=== PATIENT | male | born 1930 | race Caucasian/White ===

== ENCOUNTER 2017-04-26 18:39 | Observation (INO) | payer MEDICARE, OTHER ==
[2017-04-26 22:51] LABS: ABS Basophils 0.1 10^3/ul (0-0.2); ABS Eosinophils 0.2 10^3/ul (0-0.6); ABS Lymphocytes 0.5 10^3/ul (1.0-4.8); ABS Monocytes 1.1 10^3/ul (0-0.8); ABS Neutrophils 4.9 10^3/ul (1.5-7.7); ABS Nucleated RBC 0 10^3/ul; Eosinophil % 2.3 % (0-6); Hematocrit 25 % (42-52); Hemoglobin 8.4 g/dl (14.0-18.0); Lymphocyte % 7.1 % (25-47); Mean Corpuscular HGB Conc 33 g/dl (31-36); Mean Corpuscular Hemoglobin 31 pg (27-31); Mean Corpuscular Volume 95 fL (80-94); Mean Platelet Volume 9 um3 (7.4-10.4); Nucleated Red Blood Cells % 0.1; Platelet Count 140 10^3/ul (150-450); Red Blood Count 2.67 10^6/ul (4.0-5.4); Red Cell Distribution Width 17 % (10.5-15); White Blood Count 6.7 10^3/ul (3.5-10.8)
[2017-04-26 22:53] LABS: INR 1.52 (0.77-1.02)
[2017-04-26 22:59] LABS: EGFR Non-African American 44.9 (>60)
[2017-04-27] MEDS ORDERED: CMCS:Melatonin (NF) 3 MG TAB PO PRN (03:24)
[2017-04-27] MEDS ORDERED: Acetaminophen TAB* 325 MG PO PRN (03:24)
[2017-04-27 05:59] LABS: EGFR Non-African American 53.1 (>60)
[2017-04-27] MEDS ORDERED: Levothyroxine TAB* 25 MCG TAB PO SCH (06:00)
[2017-04-27] MEDS ORDERED: Furosemide IV* 10 MG/ML VIAL (40 MG) IV SCH (07:00)
--- NOTE | 2017-04-27 07:40 | RAD ---
INDICATION: Shortness breath. COMPARISON: Comparison is made with a prior study from April 26, 2016. TECHNIQUE: A portable view of the chest was obtained. FINDINGS: The patient is status post sternotomy and cardiac valve replacement surgery. The heart is moderately enlarged and unchanged. The lungs are underinflated. There is mild prominence of the interstitial markings which are unchanged. No pleural effusion is seen. IMPRESSION: 1. POSTSURGICAL CHANGES AND CARDIOMEGALY. 2. NO EVIDENCE FOR ACUTE FINDING.
--- NOTE | 2017-04-27 07:43 | RAD ---
INDICATION: Lower extremity pain and swelling evaluate for DVT. COMPARISON: There are no prior studies available for comparison. TECHNIQUE: Multiple real-time, color flow and Doppler tracings of both lower extremities were obtained. FINDINGS: The common femoral, femoral, profunda femoral and popliteal veins all demonstrate normal compressibility, augmentation with compression and phasic response with respiration. The posterior tibial and peroneal veins demonstrate normal compressibility and augmentation with compression. Evaluation of the calf veins was somewhat limited due to edema. There are bilateral Helton's cyst measuring 4.4 x 1.3 x 2.4 cm on the right and 2.6 x 0.6 x 2.5 cm on the left. IMPRESSION: 1. NO EVIDENCE FOR DEEP VENOUS THROMBOSIS, SLIGHTLY LIMITED EVALUATION OF THE CALF VEINS. 2. BILATERAL HELTON CYSTS.
[2017-04-27] MEDS: Losartan TAB* 25 MG PO SCH (08:22)
[2017-04-27] MEDS: Penicillin VK TAB* 250 MG PO SCH (08:23)
[2017-04-27] MEDS: Fondaparinux* 2.5 MG/0.5 ML SYRINGE SUBCUT SCH ×2 (08:23→10:37)
[2017-04-27] MEDS: Ferrous Sulfate TAB* 325 MG PO SCH (08:23)
[2017-04-27] MEDS: Cholecalciferol TAB* 400 UNIT PO SCH (08:23)
[2017-04-27] MEDS ORDERED: Multivitamins/Minerals TAB PO SCH (09:00)
--- NOTE | 2017-04-27 12:56 | HP ---
CC: Dr. Delarosa; Dr. Chapman * HISTORY AND PHYSICAL: DATE OF ADMISSION: 04/27/17 PRIMARY CARE PROVIDER: Dr. Delarosa. TECHNICAL SERVICE REPRESENTATIVE: Dr. Chapman. CHIEF COMPLAINT: Lower extremity swelling. HISTORY OF PRESENT ILLNESS: Mr. Womack is an 86-year-old male who has a history of prostate cancer status post radical prostatectomy with resultant radiation cystitis and proctitis, atrial fibrillation, chronic iron deficiency anemia, hypertension and a history of rheumatic fever as child who presents to the emergency room with complaints of lower extremity swelling. The patient is not very clear on when he noticed swelling of his legs, but he states that he thinks it began sometime around . His daughter states that it has been maybe just 1 month. He also complains of shortness of breath that developed last fall and is persistent. His daughter lives out of town and when she got in to visit him today, she noted his legs to be markedly swollen. She contacted the purchase request editor's office and it was recommended that he present to the emergency room for evaluation. He denies any pain in the legs, but he does feel as if the bottom of his feet are numb. PAST MEDICAL HISTORY: 1. Prostate cancer. 2. OA. 3. Atrial fibrillation. 4. Radiation proctitis and cystitis. 5. Hypertension. 6. Iron deficiency anemia. 7. History of rheumatic fever. PAST SURGICAL HISTORY: 1. Bladder/urethral surgeries. 2. Achilles surgery. 3. Left knee arthroscopy. 4. Radical prostatectomy. 5. Mitral valve repair. 6. Bovine aortic valve replacement. 7. Bilateral cataract extraction. MEDICATIONS: 1. Vitamin E 400 units p.o. daily. 2. Triamterene/hydrochlorothiazide 1 tab p.o. daily. 3. Pen VK 250 mg p.o. daily. 4. Multivitamin 1 tab p.o. daily. 5. Osteo Bi-Flex 1 tab p.o. daily. 6. Melatonin 5 mg p.o. q.h.s. p.r.n. insomnia. 7. Losartan 50 mg p.o. daily. 8. Leg cramp relief 1 tab p.o. q.4 hours p.r.n. cramp. 9. Folic acid 400 mcg p.o. daily. 10. Ferrous sulfate 325 mg p.o. daily. 11. Vitamin D 400 units p.o. daily. 12. Tylenol 650 mg p.o. t.i.d. p.r.n. pain. ALLERGIES: PROCAINE and HEPARIN. FAMILY HISTORY: Mom of cancer, dad of coronary disease. SOCIAL HISTORY: The patient is a nonsmoker. He does not drink. He previously worked construction. He is . His has had a stroke recently. He has 3 children. He indicates that his and his son Gurdeep are his healthcare proxies. REVIEW OF SYSTEMS: A complete 11-system review of systems is obtained. Pertinent positives and negatives are as per HPI and in addition, the patient denies any fevers, chills or anorexia. No sputum production. He also admits to anxiety. PHYSICAL EXAMINATION GENERAL: The patient is a well-developed elderly male seen lying almost completely flat in the stretcher, awake and stabilized, no acute distress. VITAL SIGNS: Blood pressure 109/49, pulse 57, respirations 17, temp 97.7, O2 sat 94% on room air. HEENT: Pupils are equal and round. There is evidence of prior cataract extraction. There is a slight bruise underneath the right eye. Oropharynx is clear. Oral mucosa is very dry. There is no submandibular, cervical or supraclavicular adenopathy. Thyroid is not enlarged. No thyroid nodules are noted. PULMONARY: Lungs are clear to auscultation bilaterally. CARDIAC: Normal S1, S2. Heart rate is mildly irregular. There is a 3/6 systolic murmur heard best at the left upper sternal border. There is significant, 4+ pitting edema to the bilateral lower extremities extending up to the hips bilaterally. ABDOMEN: Bowel sounds present. Abdomen is soft, nontender, nondistended. MUSCULOSKELETAL: There is no cyanosis or clubbing of the digits. There is full active range of motion of all 4 extremities. SKIN: Warm on the legs, slightly erythematous. There are no ulcerations or areas of weeping skin. NEUROLOGIC: Cranial nerves II through XII are grossly intact. Sensation is intact to light touch throughout. Strength is 5/5 and symmetric in both upper and lower extremities bilaterally. PSYCH: The patient is alert. He is oriented x3. Affect appears appropriate. LABORATORY DATA: WBC 6.7, hemoglobin 8.4, hematocrit 25, platelets 140,000. INR 1.52. Sodium 139, potassium 4.1, chloride 108, CO2 of 26, BUN 31, creatinine 1.49, glucose 105, lactic acid 1.8, calcium 8.8, magnesium 2.2, bilirubin 1.0. AST 29, ALT 8, alk-phos 59, troponin 0.05. BNP 988. Albumin 3.2, TSH 6.49. IMAGING: EKG revealed atrial fibrillation and a controlled rate, with a PVC, nonspecific T-wave abnormalities. Chest x-ray to my evaluation appears to show marked cardiomegaly, possible interstitial edema. Venous Doppler showed bilateral popliteal cysts. No evidence of DVT. ASSESSMENT AND PLAN: Mr. Womack is an 86-year-old male with a mildly reduced EF of 45% to 50% seen on echocardiogram, September 2016, atrial fibrillation, hypertension, history of rheumatic fever and history of prostate cancer who presents to the emergency room with complaints of lower extremity swelling that has been persistent for at least 1 month, but perhaps dating back to . 1. Lower extremity swelling: I suspect this is secondary to congestive heart failure. The patient did have an echocardiogram in September 2016 that did not reveal any significantly reduced ejection fraction. It is possible this could be diastolic congestive heart failure; however, it is also possible the patient may have had a coronary event leading to systolic congestive heart failure. A transthoracic echocardiogram will be obtained today. Also of note, the patient' s diet sounds to be quite poor. He states he eats diet low in sodium; however, he then states that he has been enjoying [employer] chili almost on a nightly basis. His daughter also states that he eats "junk food including peanut butter crackers and beacon." The patient will be admitted and will receive IV Lasix at 0700. I will hold off on giving the Lasix now as the patient states that he essentially dribbles urine all the time. A Chiang catheter has been offered; however, he adamantly refuses having this placed. He also states [place] catheter will not stay in place. The patient is not emergently in need of diuretic therapy as his O2 saturations are acceptable and he is not in any distress. Therefore, I will hold off until 0700 to given his first dose of IV Lasix. This should continue at least on a daily basis, but perhaps even twice daily. We will need to monitor his renal function closely in the setting of the aggressive IV diuresis. 2. Stage 3 chronic kidney disease: The patient's baseline creatinine appears to be around 1.5. That is where his creatinine is today. We will monitor this in the setting of IV diuresis. 3. Hypertension: The patient's blood pressure is actually low normal. He will continue on his usual dose of losartan. I am going to hold his triamterene /hydrochlorothiazide currently while he will be receiving IV Lasix. 4. Atrial fibrillation: The patient is currently in controlled in atrial fibrillation. He is not on any anticoagulation given his history of significant hematuria in the past and his ongoing anemia. 5. History of rheumatic fever: The patient is status post mitral valve repair and aortic valve replacement. He will continue on penicillin VK 250 mg daily. 6. Iron deficiency anemia: The patient's hemoglobin and hematocrit are essentially at baseline. This will be followed. He is also mildly thrombocytopenic. This will need to be followed as well. The patient states that he has been told his anemia is only related to iron deficiency; however, given the thrombocytopenia, perhaps a hematology evaluation would be warranted to evaluate for possible bone marrow process. 7. DVT prophylaxis: According to the Adult Thrombosis Prophylaxis Risk Factor Assessment Guide, the patient has a total risk factor score of 8 making him the highest risk. I will not use heparin or Lovenox for DVT prophylaxis given his allergy. He will receive Arixtra 2.5 mg subcutaneous daily as DVT prophylaxis. 8. Code status is DNR. TIME SPENT: Sixty five minutes were spent admitting this patient. [id number]/[facility] #: [id number] [place]
--- NOTE | 2017-04-27 14:51 | PN ---
Subjective Date of Service: 04/27/17 Interval History: Legs seem smaller to him. No SOB, cough, chest pain. No new c/o. Objective Active Medications: Acetaminophen (Tylenol Tab*) 650 mg PO Q4H PRN PRN Reason: PAIN Cholecalciferol (Vitamin D Tab*) 400 unit PO DAILY [facility] Last Admin: 04/27/17 08:23 Dose: 400 unit Ferrous Sulfate (Ferrous Sulfate Tab*) 325 mg PO DAILY [facility] Last Admin: 04/27/17 08:23 Dose: 325 mg Fondaparinux (Arixtra*) 2.5 mg SUBCUT DAILY [facility] Last Admin: 04/27/17 10:37 Dose: Not Given Levothyroxine Sodium (Synthroid Tab*) 25 mcg PO DAILY@0600 [facility] Last Admin: 04/27/17 05:51 Dose: 25 mcg Losartan Potassium (Cozaar Tab*) 50 mg PO DAILY [facility] Last Admin: 04/27/17 08:22 Dose: 50 mg Melatonin (Melatonin (Nf)) 3 mg PO BEDTIME PRN; Protocol PRN Reason: SLEEP Multivitamins/Minerals (Theragran/Minerals Tab*) 1 tab PO DAILY [facility] Last Admin: 04/27/17 08:23 Dose: 1 tab Penicillin V Potassium (Penicillin Vk Tab*) 250 mg PO DAILY [facility] Last Admin: 04/27/17 08:23 Dose: 250 mg Vital Signs - 8 hr 04/27/17 04/27/17 04/27/17 07:43 08:00 14:00 Temperature 97.8 F 97.8 F Pulse Rate 50 51 Respiratory 20 16 16 Rate Blood Pressure 109/53 116/56 (mmHg) O2 Sat by Pulse 100 100 Oximetry Oxygen Devices in Use Now: None Appearance: Alert, sitting on the edge of his bed. In good spirits. Looks comfortable. Eyes: No Scleral Icterus Neck: No Thyroid Enlargement, Masses, - - JVD at 45 degrees Respiratory: Symmetrical Chest Expansion and Respiratory Effort, Clear to Auscultation, Clear to Percussion Cardiovascular: RRR Extremities: No Clubbing, Cyanosis, - - 1+ edema BL Skin: No Rash or Ulcers, No Nodules or Sclerosis, - Neurological: Alert and Oriented x 3, NL Sensation Result Diagrams: 04/26/17 22:32 04/27/17 04:59 Assess/Plan/Problems-Billing Assessment: - Patient Problems (1) Acute on chronic systolic (congestive) heart failure Current Visit: Yes Status: Acute Code(s): I50.23 - ACUTE ON CHRONIC SYSTOLIC (CONGESTIVE) HEART FAILURE SNOMED Code(s): 365303092 Comment: Echo report pending. BNP high. Change to oral torsemide 40 mg 04/28. Consider discharge 04/28. (2) CKD (chronic kidney disease) Current Visit: Yes Status: Acute Code(s): N18.9 - CHRONIC KIDNEY DISEASE, UNSPECIFIED SNOMED Code(s): 565354747 Comment: Improved 04/27, est GFR 53.1. (3) HIT (heparin-induced thrombocytopenia) Current Visit: Yes Status: Acute Code(s): D75.82 - HEPARIN INDUCED THROMBOCYTOPENIA (HIT) SNOMED Code(s): 06815083 Comment: His description of his hospital stay for his AVR is suggestive of HIT. Avoid heparin/heparinoids. (4) Anemia Current Visit: Yes Status: Acute Code(s): D64.9 - ANEMIA, UNSPECIFIED SNOMED Code(s): 397647413 Comment: Chronic, stable. Needs outpt fup. (5) Atrial fibrillation Current Visit: Yes Status: Acute Code(s): I48.91 - UNSPECIFIED ATRIAL FIBRILLATION SNOMED Code(s): 42720673 Comment: Bradycardia when not active. Decision on anticoagulation has been made by his previous providers. (6) Hypothyroid Current Visit: Yes Status: Acute Code(s): E03.9 - HYPOTHYROIDISM, UNSPECIFIED SNOMED Code(s): 47862166 Comment: TSH 6+, increase levothyroxine to 50 mcg daily. (7) HTN (hypertension) Current Visit: Yes Status: Acute Code(s): I10 - ESSENTIAL (PRIMARY) HYPERTENSION SNOMED Code(s): 32499725 Comment: Continue losartan.
[2017-04-27] MEDS ORDERED: Levothyroxine TAB* 50 MCG TAB PO SCH (15:02)
--- NOTE | 2017-04-27 18:02 | ECHO ---
Patient: JOAN SCHAFFER [facility] Rec#: [id number] : 1930 Date: 04/27/2017 Age: 86y Height: 167.6 cm / 66.0 in Weight: 80.3 kg / 177.0 lbs Sex: M BSA: 1.9 Room#: 440 Admit Date#: 04/27/2017 Type: Inpatient Referring: Corie Mckinney DO Reading: Betina Hollingsworth MD Jail Keeper: Letty Dawn RN RDCS CC: Kalpesh Delarosa DO CC: Humphrey Chapman MD Transthoracic Echocardiogram Indication: CHF BP: 130/65 HR: 53 Rhythm: A-Fib Findings History: HTN, 23mm Harris bovine pericaridal AVR, mitral valve annuloplasty. Technical Comments: The study quality is fair. Completed at 1500. Left Ventricle: The left ventricular chamber size is normal. Mild concentric left ventricular hypertrophy is observed. Mild global hypokinesis of the left ventricle is observed. There is mildly decreased left ventricular systolic function. The estimated ejection fraction is 45-50%. Ventricular septal wall motion has a post-operative appearance. There is septal flattening of the interventricular septum consistent with right ventricular volume or pressure overload. Abnormal left ventricular diastolic function is observed. Left Atrium: The left atrium is severely dilated. Right Ventricle: The right ventricle is moderate to severely dilated. The right ventricular global systolic function is mildly reduced. Right Atrium: The right atrial cavity size is severely dilated. A prominent eustachian valve is noted in the right atrium. Aortic Valve: There is a trace of aortic regurgitation. The mean gradient of the aortic valve is 17 mmHg. The peak instantaneous gradient of the aortic valve is 30 mmHg. The bio-prosthetic aortic valve appears to be functioning normally. Mitral Valve: The mitral valve leaflets are moderately thickened. There is mild mitral regurgitation. There is mild mitral stenosis. The mitral valve is S/P annuloplasty ring. Tricuspid Valve: The tricuspid valve leaflets are normal. There is moderate to severe tricuspid regurgitation. There is evidence of mild pulmonary hypertension.PA pressure possibley underestimated. There is no tricuspid stenosis. Pulmonic Valve: The pulmonic valve appears normal. There is mild pulmonic regurgitation. There is no pulmonic stenosis. Pericardium: There is no significant pericardial effusion. A pericardial fat pad is visualized. Aorta: There is no dilatation of the ascending aorta. The aortic arch is not well visualized. There is no dilation of the aortic root. Pulmonary Artery: The main pulmonary artery appears normal. Venous: The inferior vena cava is dilated. There is less than 50% respiratory change in the inferior vena cava dimension. Hepatic vein systolic flow is reversed. Conclusions Mild concentric left ventricular hypertrophy is observed. Mild global hypokinesis of the left ventricle is observed. Ventricular septal wall motion has a post-operative appearance and there is septal flattening of the interventricular septum consistent with right ventricular volume or pressure overload. Abnormal left ventricular diastolic function is observed. The right ventricle is moderate to severely dilated. The right ventricular global systolic function is mildly reduced. The bio-prosthetic aortic valve appears to be functioning well, mild leaflet thickening iwth normal excursion. The mean gradient of the aortic valve is 17 mmHg. There is a trace of aortic regurgitation. There is mild mitral regurgitation. There is mild mitral stenosis post annuloplaty ring: mean gradient 4.6 mmHg. There is moderate to severe tricuspid regurgitation. There is evidence of mild pulmonary hypertension: 38 mmHg, PA pressure possibley underestimated. Compared with prior echo of , prior LVEF 45-50% and D shaped septum previously described, RV function and dilatation are stable, bioprosthetic aortic valve function is stable, prior mean gradient 16.5 mmHg, TR is stable, prior PApressure was 55 mmHg. Measurements Name Value Normal Range RVIDd (AP) 2D 3.7 cm (0.9 - 2.6) RVDdMajor (2D) 6 cm (2.2 - 4.4) RAd ISD 4CH 7.6 cm (3.4 - 4.9) RA (A4C)W 5.8 cm (2.9 - 4.6) IVSd (2D) 1.2 cm (0.6 - 1) LVPWd (2D) 1.2 cm (0.6 - 1) LVIDd (2D) 4.6 cm (3.6 - 5.4) LVIDs (2D) 3.6 cm - LV FS (2D) 22 % (25 - 45) Aortic Annulus 1.9 cm (1.4 - 2.6) Ao root diameter (2D) 2.8 cm (2.1 - 3.5) Ascending Ao 3.2 cm (2.1 - 3.4) LA dimension (AP) 2D 5.2 cm (2.3 - 3.8) LAd ISD 4CH 7 cm (2.9 - 5.3) LA ISD 4CH W 6.4 cm (2.5 - 4.5) Name Value Normal Range LA ESV SP 4CH (A/L) 176 ml - LA ESV SP 2CH (A/L) 182 ml - LA ESV BP (A/L) 183 ml - LA ESV BP (A/L) index 96.5 ml/m2 - LA ESV SP 4CH (MOD) 166 ml - LA ESV SP 2CH (MOD) 175 ml - Name Value Normal Range MV E-wave Vmax 1.7 m/sec - MV deceleration time 453 msec - LV septal e' Vmax 0.06 m/sec - LV lateral e' Vmax 0.1 m/sec - LV E:e' septal ratio 28.3 ratio - LV E:e' lateral ratio 17 ratio - Name Value Normal Range AV Vmax 2.7 m/sec - AV VTI 64.6 cm - AV peak gradient 30 mmHg - AV mean gradient 17 mmHg - LVOT diameter 2.2 cm - LVOT Vmax 1.4 m/sec - LVOT VTI 31.8 cm - LVOT peak gradient 8 mmHg - LVOT mean gradient 4.6 mmHg - DOI (VTI) 0.49 ratio - DOI (Vmax) 0.52 ratio - SV LVOT 121 ml - CO LVOT 6.4 l/min - Cardiac index 3.4 l/min/m2 - RABIA (continuity Vmax) 2 cm2 - RABIA (continuity VTI) 1.9 cm2 - Name Value Normal Range MV Vmax 2.1 m/sec - MV VTI 61.9 cm - MV peak gradient 17 mmHg - MV mean gradient 4.6 mmHg - MV PHT 133 msec - MVA (PHT) 1.7 cm2 - MVA (continuity VTI) 2 cm2 - Name Value Normal Range TR Vmax 2.4 m/sec - TR peak gradient 23 mmHg - RAP 15 mmHg - RVSP 38 mmHg - IVC diameter 3 cm - Name Value Normal Range PV Vmax 0.97 m/sec -
[2017-04-28] MEDS: Ferrous Sulfate TAB* 325 MG PO SCH (08:29)
[2017-04-28] MEDS: Penicillin VK TAB* 250 MG PO SCH (08:29)
[2017-04-28] MEDS: Cholecalciferol TAB* 400 UNIT PO SCH (08:29)
[2017-04-28] MEDS: Losartan TAB* 25 MG PO SCH (08:29)
[2017-04-28] MEDS: Fondaparinux* 2.5 MG/0.5 ML SYRINGE SUBCUT SCH (08:29)
[2017-04-28] MEDS ORDERED: Torsemide TAB* 20 MG PO SCH (09:00)
--- NOTE | 2017-04-28 10:49 | PN ---
Progress Note - Progress Note Date of Service: 04/28/17 Note: Time spent on discharge 40 minutes.
[2017-04-28 13:51] VITALS: BP 105/58
--- NOTE | 2017-04-29 01:35 | DS ---
CC: Dr. Delarosa * DISCHARGE SUMMARY: DATE OF ADMISSION: 04/27/17 DATE OF DISCHARGE: 04/28/17. HISTORY: This 86-year-old male presented with edema of the legs. It may have lasted in for a month or two. He was short of breath as well. The rest of the history is detailed in the admission note. This was thought to be congestive heart failure. His echocardiogram showed an ejection fraction of 45% to 50% and mild global hypokinesis. He received intravenous furosemide. His oral diuretic was stopped. I also found that his TSH was elevated at 6.49. His levothyroxine dose was increased to 50 mcg daily. The patient's edema resolved. He had a modest amount of diuresis. He was switched to oral torsemide 40 mg daily on the day of discharge. He will have a BMP on 05/02/17. FINAL DIAGNOSES: 1. Acute on chronic systolic congestive heart failure. 2. Chronic kidney disease. 3. History of heparin allergy. 4. Anemia. 5. Atrial fibrillation. 6. Hypothyroidism. 7. Hypertension. DISCHARGE MEDICATIONS: 1. Levothyroxine 50 mcg daily. 2. Torsemide 40 mg daily. 3. Vitamin E 400 units daily. 4. Penicillin VK one tablet daily 250 mg. 5. Losartan 50 mg daily. 6. Folic acid 400 mcg daily. 7. Cholecalciferol 400 units daily. 8. Acetaminophen/Tylenol 8 t.i.d. p.r.n. 9. Osteo Bi-Flex as prescribed. 10. Ferrous sulfate 325 mg daily. The patient will have basic metabolic profile on 05/02/17. The patient was instructed to weigh himself everyday, write down the weight and to call us or his provider if his weight is going up or down more than 3 pounds from the initial weight. [id number]/[facility] #: [id number] [facility]
== END 2017-04-28 14:23 | disposition home or self-care (01) ==
LOC: ED 18:39 → MEDTELE 04-27 03:02 → INTOOBSV 04-27 03:02
PROVIDERS: ADMIT Hospitalist; ATTEND Internal Medicine
DX: I13.0 Hypertensive heart and chronic kidney disease with heart failure and stage 1 through stage 4 chronic kidney disease, or unspecified chronic kidney disease (principal); I50.23 Acute on chronic systolic (congestive) heart failure; N18.3 Chronic kidney disease, stage 3 (moderate); I48.91 Unspecified atrial fibrillation; D50.9 Iron deficiency anemia, unspecified; M79.605 Pain in left leg; M79.604 Pain in right leg; E03.9 Hypothyroidism, unspecified; M71.22 Synovial cyst of popliteal space [Baker], left knee; M71.21 Synovial cyst of popliteal space [Baker], right knee; I51.7 Cardiomegaly; Z88.8 Allergy status to other drugs, medicaments and biological substances; Z79.899 Other long term (current) drug therapy
CPT/HCPCS: 36415; 71045; 80048; 80053; 83605; 83735; 83880; 84439; 84443; 84484; 85025; 85610; 85730; 86850; 86900; 86901; 93005; 93306; 93970; 96374; 99285; A9270-GY; G0378; J1940